=== PATIENT | female | born 2000 | race Caucasian/White ===

== ENCOUNTER 2023-11-05 12:51 | Emergency (ER) | payer OTHER, SELFPAY ==
[2023-11-05 12:58] VITALS: BP 129/85; PULSE 89; RESP 18; TEMP 36.7; O2SAT 97; BMI 26.6
--- NOTE | 2023-11-05 13:42 | CRLHL7_ITS ---
For Patients: As a result of the Century Cures Act, medical imaging exams and procedure reports are released immediately into your electronic medical record. You may view this report before your referring provider. If you have questions, please contact your health care provider. INDICATION: Right flank abdominal pain TECHNIQUE: Axial images were obtained from the diaphragm to the pubic symphysis. Reformats were obtained in the coronal and sagittal plane. IV Contrast: None Oral Contrast: None COMPARISON: None. FINDINGS: Lower chest: Unremarkable. Liver: Unremarkable. Normal in size and attenuation. No masses. Gallbladder and bile ducts: Unremarkable. No stones or inflammation. No biliary dilatation. Spleen: Unremarkable. Normal in size without mass. Pancreas: Unremarkable. No mass or inflammation. Adrenal glands: Unremarkable. No nodules. Kidneys: Mild fat stranding surrounding the right kidney with mild right hydronephrosis. Obstructing stone at the right ureterovesicular junction measuring 5 x 3 millimeters. Left kidney is normal in contour with a 6 millimeter cyst at the lower pole. Vasculature: Unremarkable. GI tract: The stomach is unremarkable. No dilated loops of large or small intestine. Unremarkable appendix. Pelvis: Trace free fluid in the pelvic cul-de-sac with right ovarian cyst measuring 14 millimeters. Bones: Unremarkable for age. IMPRESSION: Nephrolithiasis with mild right hydronephrosis and obstructing right ureterovesicular junction stone measuring 5 x 3 millimeters. Please note that all CT scans at this facility use dose modulation, iterative reconstruction, and/or weight-based dosing when appropriate to reduce radiation dose to as low as reasonably achievable. Dictated by Drew Ribeiro MD @ 11/05/2023 2:36:40 PM (Electronically Signed)
--- NOTE | 2023-11-05 13:57 | ED.GENADULT ---
HPI - General Adult General Chief complaint: Abdominal Pain Stated complaint: Ref Asmussen-poss appy or ovarian cyst Time Seen by Provider: 11/05/23 12:56 History of Present Illness HPI narrative: This 23-year-old female comes in from clinic because of pain in the right flank and right abdomen. This pain started yesterday and has some fluctuant nature to it. She does report some nausea but no vomiting. She does not have any fevers, constipation, or dysuria. She states that she has had pain like this in the past with less intensity. She did go to a chiropractor and an adjustment of her low back did not bring any improvement. She does not have a personal history of kidney stones but there is family history of such. Related Data Previous Rx's ?Medication ?Instructions ?Recorded hydrocodone 5 mg-acetaminophen 325 1 tab PO Q4-6H PRN pain #15 tabs 11/05/23 mg tablet ketorolac 10 mg tablet 10 mg PO Q8H 5 days #15 tabs 11/05/23 ondansetron HCl 4 mg tablet 4 mg PO Q6H #15 tabs 11/05/23 Allergies Allergy/AdvReac Type Severity Reaction Status Date / Time No Known Drug Allergies Allergy Verified 11/05/23 12:02 Review of Systems Status of ROS: Reports: 10 or more systems reviewed and unremarkable except as noted in History and below Narrative: Constitutional: No fevers, no weight gain or loss. Eyes: No discharge. No vision changes. HENT: No congestion, no sore throat, no ear pain. Cardiovascular: No chest pain, no palpitations. Respiratory: No shortness of breath, no wheezes, no cough. Gastrointestinal: No vomiting, no diarrhea. Right flank pain radiating into the right abdomen. Genitourinary: No dysuria, no hematuria. Musculoskeletal: Normal range of motion. Skin: No rashes, no pruritis. Neurological: No dizziness, weakness, sensory change, speech change. Endo/Heme/Allergies: No bruising or bleeding. No polydipsia. Pysch: no suicidality, no anxiety, no insomnia. All other systems reviewed and are negative. PFSH PFSH Social History Smoking Status: Never smoker How often do you have a drink containing alcohol: never AUDIT-C Alcohol total score: 0 Non-prescribed substance use: denies use Exam Narrative: Exam Narrative: Constitutional: Well-developed, well-nourished, no acute distress. HEENT: Normocephalic, atraumatic. Neck: Normal range of motion. Nontender. Supple. Heart: Regular. No murmurs. Normal rate. Intact distal pulses. Lungs: Clear to auscultation. No chest discomfort. No wheezes, rhonchi, or rales. Abdomen: Normal bowel sounds. No rebound tenderness. Diffuse tenderness in the right abdomen. Pain is not worse when palpating in her abdomen. No pain when palpating over the gallbladder or McBurney's point. Genitalia: Deferred. Back: No midline tenderness. Normal range of motion. Extremities: Normal range of motion. No injury. Skin: Intact. No rash. Warm. No erythema or pallor. Neurologic: No altered sensation. No weakness. Alert and oriented. Psychiatric: No suicidality. No anxiety or depression. No insomnia. Nursing notes and vitals signs are reviewed. Const: Vital Signs, click to edit/add: Vital Signs - 24 hr 11/05/23 12:58 Temperature 98.0 F Pulse Rate [Left P ulse Oximeter] 89 Respiratory Rate 18 Blood Pressure [Ri ght Upper Arm] 129/85 Pulse Oximetry 97 Oxygen Delivery Me thod Room Air Course Vital Signs Vital signs: Initial Vital Signs Temperature 98.0 F 11/05/23 12:58 Temperature Source Temporal Artery Scan 11/05/23 12:58 Pulse Rate 89 11/05/23 12:58 Pulse Rhythm Regular 11/05/23 12:58 Respiratory Rate 18 11/05/23 12:58 Blood Pressure 129/85 11/05/23 12:58 Blood Pressure Mean 99 11/05/23 12:58 Blood Pressure Position Sitting 11/05/23 12:58 Pulse Oximetry 97 11/05/23 12:58 Oxygen Delivery Method Room Air 11/05/23 12:58 Vital Signs Temperature 98.0 F 11/05/23 12:58 Pulse Rate 89 11/05/23 12:58 Respiratory Rate 18 11/05/23 12:58 Blood Pressure 129/85 11/05/23 12:58 Pulse Oximetry 97 11/05/23 12:58 Oxygen Delivery Method Room Air 11/05/23 12:58 Temperature 98.0 F 11/05/23 12:58 Pulse Rate 89 11/05/23 12:58 Respiratory Rate 18 11/05/23 12:58 Blood Pressure 129/85 11/05/23 12:58 Pulse Oximetry 97 11/05/23 12:58 Oxygen Delivery Method Room Air 11/05/23 12:58 Medical Decision Making MDM Narrative Medical decision making narrative: This patient comes in with right flank pain extending into her abdomen. This is suspicious for kidney stone. She has family history of kidney stone but no personal history. She does state that she did have similar symptoms about 6 months ago that were more mild. CT scan of the abdomen and pelvis today does show a 3 x 5 mm ureteral stone at the ureterovesical junction. Urinalysis shows hematuria but no sign of infection. The patient did not receive any pain or nausea medicines here. She states that she currently is feeling much better. I did advise her regarding matters pertaining to kidney stones. She is okay to be discharged home and received prescriptions for Toradol, [place], and Zofran. Lab Data Labs: Lab Results 11/05/23 Range/Units 14:05 Urine Color Yellow (Yellow) Urine Appearance Clear (Clear) Urine pH 7.5 (5.0-8.5) Ur Specific [place] 1.020 (1.000-1.030) Urine Protein 1+ A (Negative) Urine Glucose (UA) Negative (Negative) Urine Ketones 4+ A (Negative) Urine Blood 2+ A (Negative) Urine Nitrite Negative (Negative) Urine Bilirubin 1+ A (Negative) Urine Urobilinogen 0.2 (0.2-1.0) Ur Leukocyte Esterase Trace A (Negative) Urine RBC 25-50 A (0-2) Urine WBC 2-5 (0-5) Ur Squamous Epith Cells Moderate A (None-Few) Urine Bacteria Moderate A (None) Imaging Data CT scan - abdomen: Radiologist's impression: Nephrolithiasis with mild right hydronephrosis and obstructing right ureterovesicular junction stone measuring 5 x 3 millimeters. Discharge Plan Discharge Clinical Impression: Calculus, ureteral Patient Disposition: Home, Self-Care Condition: Improved Additional Instructions: Take medication as needed and directed. Follow up with MD return if symptoms are persistent or worsening. Prescriptions: New hydrocodone-acetaminophen 5-325 mg tablet 1 tab PO Q4-6H PRN (Reason: pain) Qty: 15 0RF ondansetron HCl 4 mg tablet 4 mg PO Q6H Qty: 15 0RF ketorolac 10 mg tablet 10 mg PO Q8H 5 Days Qty: 15 0RF Follow Up/Referrals: Atif Joshi MD [Primary Care Provider] - Stand Alone Forms: Basic6 Info Instructions
[2023-11-05 14:31] LABS: Appearance Urine Clear (Clear); Bilirubin Urine 1+ (Negative); Blood Urine 2+ (Negative); Color Urine Yellow (Yellow); Glucose Urine Negative (Negative); Ketones Urine 4+ (Negative); Leukocyte Esterase Urine Trace (Negative); Nitrite Urine Negative (Negative); Protein Urine 1+ (Negative); Urobilinogen Urine 0.2 (0.2-1.0); pH Urine 7.5 (5.0-8.5)
[2023-11-05 14:33] LABS: Bacteria Urine Moderate; RBC Urine 25-50 (0-2); Squamous Epithelial Cell Urine Moderate (None-Few)
== END 2023-11-05 15:42 | disposition home or self-care (01) ==
PROVIDERS: Emergency Provider Emergency Medicine Emergency Medical Services; PCP Family Medicine
DX: N20.1 Calculus of ureter (principal)
CPT/HCPCS: 74176; 81001; 87086; 99283; 99284